=== PATIENT | male | born 1960 | race Asian ===

== ENCOUNTER 2023-08-18 10:48 | Day surgery (SDC) | payer OTHER ==
[2023-08-13 17:16] VITALS: BMI 24.2
[2023-08-18 11:45] VITALS: TEMP 97.5
[2023-08-18 13:04] VITALS: PULSE 76; RESP 20
[2023-08-18 13:54] VITALS: BP 103/58
== END 2023-08-18 13:40 | disposition home or self-care (01) ==
LOC: FASU-ENDO 10:48
PROVIDERS: ATTEND Internal Medicine Gastroenterology
PROC: 0DJD8ZZ Inspection of Lower Intestinal Tract, Via Natural or Artificial Opening Endoscopic (ICD-10-PCS; principal; 2023-08-18 12:38)
DX: Z12.11 Encounter for screening for malignant neoplasm of colon (principal); K64.1 Second degree hemorrhoids; K64.8 Other hemorrhoids